=== PATIENT | female | born 1990 | race Asian ===

== ENCOUNTER 2016-10-10 20:40 | Emergency (ER) | payer MEDICAID ==
[~2016-10-10] VITALS: Ht 157.5 cm; Wt 74.8 kg
[2016-10-10 20:40] VITALS: BP 123/72; PULSE 68; RESP 18; TEMP 98.1; O2SAT 99
[~2016-10-10 20:40] MED LIST: ABILIFY; DEPAKOTE; TEMA15CA51 PO
--- NOTE | 2016-10-10 20:45 | NUR ---
Patient to ER bed 08 to gown for evaluation. Side rails up. Report given to CHARLINE Pruitt.
--- NOTE | 2016-10-10 20:48 | NUR ---
Patient came in after she just broke with her boyfriend and is upset. NO s/s of distress
--- NOTE | 2016-10-10 20:50 | NUR ---
ER at bedside examining patient.
[2016-10-10 21:20] VITALS: BP 123/72; PULSE 68; RESP 18; TEMP 98.1; O2SAT 99
--- NOTE | 2016-10-10 21:20 | NUR ---
Patient given written and verbal discharge instructions and verbalizes understanding. ER MD discussed with patient the results and treatment provided. Patient in stable condition. ID arm band removed. Patient educated on pain management and to follow up with PMD. Pain Scale 0/10. Opportunity for questions provided and answered.
[2016-10-10] MEDS ORDERED: LIDOCAINE 2%, 20 ML MDV ONE (21:53)
== END 2016-10-10 21:20 | disposition home or self-care (01) ==
LOC: SED 20:40
DX: G47.00 Insomnia, unspecified (principal); M79.662 Pain in left lower leg; F31.9 Bipolar disorder, unspecified; Z88.1 Allergy status to other antibiotic agents
CPT/HCPCS: 99281; J2001

== ENCOUNTER 2016-12-29 21:24 | Emergency (ER) | payer MEDICAID ==
[~2016-12-29] VITALS: Ht 165.1 cm; Wt 83.9 kg
[2016-12-29 21:25] VITALS: BP_SYST 123
[2016-12-29] MEDS ORDERED: IBUPROFEN 800 MG TABLET PO ONE (22:00)
[2016-12-29 22:06] LABS: BILIRUBIN,URINE NEGATIVE (NEGATIVE); BLOOD, URINE NEGATIVE (NEGATIVE); CLARITY/URINE CLOUDY (CLEAR); COLOR,URINE YELLOW (YELLOW); GLUCOSE,URINE NEGATIVE (NEGATIVE); KETONES,URINE NEGATIVE (NEGATIVE); LEUKOCYTE ESTERASE ,URINE 1+ (NEGATIVE); NITRITE, URINE NEGATIVE (NEGATIVE); PH,URINE 7.5 (5.0-8.0); PROTEIN URINE TRACE (NEGATIVE)
[2016-12-29 22:11] VITALS: BP_SYST 123
[2016-12-29 22:48] LABS: BACTERIA,URINE MODERATE /HPF (None Seen); RBC,URINE 0-3 /HPF (0-3)
[2016-12-29 22:51] LABS: MUCUS,URINE 1+ /LPF (None Seen)
[2016-12-29 22:52] LABS: URINE AMORPHOUS PHOSPHATES 4+ /HPF (None Seen)
== END 2016-12-29 22:11 | disposition home or self-care (01) ==
LOC: SED 21:24
DX: M79.622 Pain in left upper arm (principal); T43.595A Adverse effect of other antipsychotics and neuroleptics, initial encounter; F31.9 Bipolar disorder, unspecified; Y92.89 Other specified places as the place of occurrence of the external cause
CPT/HCPCS: 81000-TC; 87086; 99284

== ENCOUNTER 2017-01-17 10:00 | Emergency (ER) | payer MEDICAID ==
[~2017-01-17] VITALS: Ht 165.1 cm; Wt 82.6 kg
[2017-01-17 10:03] VITALS: BP_SYST 111
[2017-01-17] MEDS ORDERED: ONDANSETRON 4 MG ODT TAB PO ONE (10:45)
[2017-01-17 10:55] LABS: BASOPHILS # (AUTO) 0.1 K/uL (0.0-0.2); BASOPHILS % (AUTO) 0.6 % (0.0-2.0); EOSINOPHILS % (AUTO) 0.1 % (0.0-4.0); HEMATOCRIT 43.2 % (36-48); HEMOGLOBIN 14.4 g/dL (12.0-16.0); LYMPHOCYTES # (AUTO) 0.6 K/uL (1.0-5.5); LYMPHOCYTES % (AUTO) 7.2 % (20.5-51.5); MEAN CORPUSCULAR HEMOGLOBIN 30 pg (27-31); MEAN CORPUSCULAR HGB CONC 33 % (32-36); MEAN CORPUSCULAR VOLUME 91 fL (79.0-98.0); MONOCYTES # (AUTO) 0.2 K/uL (0.0-1.0); MONOCYTES % (AUTO) 2.2 % (1.7-9.3); NEUTROPHILS # (AUTO) 7.9 K/uL (1.8-7.7); NEUTROPHILS % (AUTO) 89.9 % (40.0-70.0); PLATELET COUNT (AUTO) 223 K/uL (130-430); RED BLOOD CELL COUNT(AUTO) 4.76 MIL/uL (4.2-6.2); RED CELL DISTRIBUTION WIDTH 12.1 % (9.0-15.0); WHITE BLOOD COUNT (AUTO) 8.8 K/uL (4.8-10.8)
[2017-01-17 11:02] LABS: CALCIUM 8.5 mg/dL (8.4-11.0); CREATININE 0.67 mg/dL (0.55-1.30); POTASSIUM 3.8 mmol/L (3.5-5.1)
[2017-01-17 11:06] LABS: ALBUMIN 3.8 g/dL (3.4-4.8); TOTAL BILIRUBIN 0.6 mg/dL (0.0-1.0); TOTAL PROTEIN, SERUM 7.6 g/dL (6.4-8.3)
[2017-01-17 11:36] LABS: BILIRUBIN,URINE 1+ (NEGATIVE); BLOOD, URINE 3+ (NEGATIVE); CLARITY/URINE SL HAZY (CLEAR); COLOR,URINE YELLOW (YELLOW); GLUCOSE,URINE NEGATIVE (NEGATIVE); KETONES,URINE NEGATIVE (NEGATIVE); LEUKOCYTE ESTERASE ,URINE 2+ (NEGATIVE); NITRITE, URINE NEGATIVE (NEGATIVE); PH,URINE 5.5 (5.0-8.0); PROTEIN URINE TRACE (NEGATIVE)
[2017-01-17 11:50] LABS: BACTERIA,URINE MODERATE /HPF (None Seen); RBC,URINE 20-50 /HPF (0-3)
[2017-01-17 13:06] VITALS: BP_SYST 122
== END 2017-01-17 13:06 | disposition home or self-care (01) ==
LOC: SED 10:00
DX: R10.32 Left lower quadrant pain (principal); R19.7 Diarrhea, unspecified; R11.10 Vomiting, unspecified; Z88.6 Allergy status to analgesic agent; Z98.890 Other specified postprocedural states
CPT/HCPCS: 36415; 80053; 80164; 81000; 81025; 83690; 84703; 85025; 87086; 99284; Q0162

== ENCOUNTER 2017-02-10 00:38 | Emergency (ER) | payer MEDICAID ==
[~2017-02-10] VITALS: Ht 165.1 cm; Wt 83.0 kg
[2017-02-10 01:01] VITALS: BP_SYST 101
[2017-02-10] MEDS ORDERED: ARIP15TA2 PO (01:08)
[2017-02-10] MEDS ORDERED: DIVA500T2 PO (01:08)
[2017-02-10 01:43] VITALS: BP_SYST 101
[2017-02-10 01:46] LABS: BILIRUBIN,URINE 1+ (NEGATIVE); BLOOD, URINE NEGATIVE (NEGATIVE); CLARITY/URINE SL HAZY (CLEAR); COLOR,URINE YELLOW (YELLOW); GLUCOSE,URINE NEGATIVE (NEGATIVE); KETONES,URINE NEGATIVE (NEGATIVE); LEUKOCYTE ESTERASE ,URINE TRACE (NEGATIVE); NITRITE, URINE NEGATIVE (NEGATIVE); PH,URINE 6.5 (5.0-8.0); PROTEIN URINE TRACE (NEGATIVE); UROBILINOGEN,URINE 0.2 (0.2-1.0)
[2017-02-10 01:51] LABS: BACTERIA,URINE FEW /HPF (None Seen); MUCUS,URINE 1+ /LPF (None Seen); RBC,URINE 0-3 /HPF (0-3)
[2017-02-10 01:52] LABS: BARBITURATE, URINE NEGATIVE (NEG <=200); BENZODIAZEPINE, URINE NEGATIVE (NEG <=150); CANNABINOID, URINE NEGATIVE (NEG <=50); COCAINE, URINE NEGATIVE (NEG <=150); METHAMPHETAMINES SCREEN,URINE NEGATIVE (NEG <=500); OPIATE, URINE NEGATIVE (NEG <=100); PHENCYCLIDINE SCREEN,URINE NEGATIVE (NEG <=25); UR TRICYCLIC ANTIDEPRESSANTS NEGATIVE (NEG <=300); URINE AMPHETAMINE NEGATIVE (NEG <=500); URINE OXYCODONE SCREEN NEGATIVE (NEG <=100); URINE PROPOXYPHENE SCREEN NEGATIVE (NEG <=300)
[2017-02-10 01:53] LABS: URINE METHADONE NEGATIVE (NEG <=200)
== END 2017-02-10 01:43 | disposition left against medical advice (07) ==
LOC: SED 00:38
DX: F41.9 Anxiety disorder, unspecified (principal); F31.9 Bipolar disorder, unspecified; Z53.20 Procedure and treatment not carried out because of patient's decision for unspecified reasons; Z88.1 Allergy status to other antibiotic agents
CPT/HCPCS: 80307; 81000-TC; 81025; 87086; 99284

== ENCOUNTER 2017-03-24 22:33 | Emergency (ER) | payer MEDICAID ==
[~2017-03-24] VITALS: Ht 165.1 cm; Wt 83.0 kg
[~2017-03-24 22:33] MED LIST changes: -ABILIFY; +ARIP15TA2 PO; -DEPAKOTE; +DIVA500T2 PO; -TEMA15CA51 PO
[2017-03-24 22:34] VITALS: BP_SYST 108
[2017-03-24 23:24] VITALS: BP_SYST 108
[2017-03-24] MEDS ORDERED: ONDANSETRON 4 MG ODT TAB PO ONE (23:30)
[2017-03-24] MEDS ORDERED: AZITHROMYCIN 250 MG TABLET PO ONE (23:30)
[2017-03-24] MEDS ORDERED: AZITHROMYCIN 250 MG TABLET ONE ×2 (23:43→23:57)
[2017-03-25 00:06] LABS: BILIRUBIN,URINE NEGATIVE (NEGATIVE); BLOOD, URINE NEGATIVE (NEGATIVE); CLARITY/URINE CLEAR (CLEAR); COLOR,URINE YELLOW (YELLOW); GLUCOSE,URINE NEGATIVE (NEGATIVE); KETONES,URINE 1+ (NEGATIVE); LEUKOCYTE ESTERASE ,URINE NEGATIVE (NEGATIVE); NITRITE, URINE NEGATIVE (NEGATIVE); PROTEIN URINE NEGATIVE (NEGATIVE); UROBILINOGEN,URINE 0.2 (0.2-1.0)
[2017-03-25 00:07] VITALS: BP_SYST 110
[2017-03-28 23:28] LABS: CHLAMYDIA TRACHOMATIS NAA Negative (Negative); NEISSERIA GONORRHOEAE NAA Negative (Negative)
== END 2017-03-25 00:07 | disposition home or self-care (01) ==
LOC: SED 22:33
DX: N76.0 Acute vaginitis (principal); B96.89 Other specified bacterial agents as the cause of diseases classified elsewhere; F31.9 Bipolar disorder, unspecified; Z88.1 Allergy status to other antibiotic agents
CPT/HCPCS: 81003; 81025; 87491; 87591; 99284; Q0144; Q0162

== ENCOUNTER 2017-08-05 08:56 | Emergency (ER) | payer OTHER, MEDICAID ==
[~2017-08-05] VITALS: Ht 165.1 cm; Wt 83.9 kg
[2017-08-05 09:08] VITALS: BP_SYST 125
--- NOTE | 2017-08-05 09:14 | NUR ---
Patient triaged and placed in waiting room. VSS and patient appears in no acute distress at this time. Accompanied by self, awaiting available bed, and MD notified of need for MSE.
[2017-08-05 09:48] LABS: BILIRUBIN,URINE 1+ (NEGATIVE); BLOOD, URINE NEGATIVE (NEGATIVE); CLARITY/URINE CLEAR (CLEAR); COLOR,URINE YELLOW (YELLOW); GLUCOSE,URINE NEGATIVE (NEGATIVE); KETONES,URINE 1+ (NEGATIVE); LEUKOCYTE ESTERASE ,URINE NEGATIVE (NEGATIVE); NITRITE, URINE NEGATIVE (NEGATIVE); PH,URINE 7.5 (5.0-8.0); PROTEIN URINE NEGATIVE (NEGATIVE)
--- NOTE | 2017-08-05 09:48 | NUR ---
Ambulatory to bed 4
[2017-08-05 09:53] LABS: BACTERIA,URINE RARE /HPF (None Seen); MUCUS,URINE 1+ /LPF (None Seen); RBC,URINE 0-3 /HPF (0-3); WBC,URINE 0-3 /HPF (0-3)
--- NOTE | 2017-08-05 10:38 | NUR ---
Dr. Kulkarni at bedside for evaluation
--- NOTE | 2017-08-05 11:10 | NUR ---
Pt brought by self, A&Ox4, pt c/o burning and pain with urination with mild white discharge , pt concern about STDs since she has been having unprotected sex, skin pink and warm, cap refill <3.
--- NOTE | 2017-08-05 11:20 | NUR ---
Dr Kulkarni at bedside reevaluating patient, pt refusing pelvic exam at this time, VS WNL.
[2017-08-05] MEDS ORDERED: LEVOFLOXACIN 500 MG TABLET PO ONE ×2 (11:30)
[2017-08-05] MEDS ORDERED: AZITHROMYCIN 250 MG TABLET PO ONE ×2 (11:30)
[2017-08-05 11:48] VITALS: BP_SYST 122
--- NOTE | 2017-08-05 11:48 | NUR ---
Patient given written and verbal discharge instructions and verbalizes understanding. ER MD discussed with patient the results and treatment provided. Patient in stable condition. ID arm band removed. No prescriptions given. Patient educated on pain management and to follow up with PMD. Pain Scale 0/10 Opportunity for questions provided and answered.
[2017-08-09 07:18] LABS: CHLAMYDIA TRACHOMATIS NAA Negative (Negative); NEISSERIA GONORRHOEAE NAA Negative (Negative)
== END 2017-08-05 11:48 | disposition home or self-care (01) ==
LOC: SED 08:56
DX: R10.2 Pelvic and perineal pain (principal); R30.0 Dysuria; N89.8 Other specified noninflammatory disorders of vagina; F31.9 Bipolar disorder, unspecified; Z88.1 Allergy status to other antibiotic agents
CPT/HCPCS: 81000; 81025; 87491; 87591; 99284; Q0144

== ENCOUNTER 2017-09-21 09:41 | Emergency (ER) | payer OTHER, MEDICAID ==
[~2017-09-21] VITALS: Ht 165.1 cm; Wt 83.9 kg
[2017-09-21 09:41] VITALS: BP_SYST 113
[2017-09-21 11:02] LABS: BASOPHILS # (AUTO) 0.1 K/uL (0.0-0.2); BASOPHILS % (AUTO) 0.6 % (0.0-2.0); EOSINOPHILS # (AUTO) 0.1 K/uL (0.0-0.4); EOSINOPHILS % (AUTO) 0.7 % (0.0-4.0); HEMATOCRIT 42.5 % (36-48); HEMOGLOBIN 13.8 g/dL (12.0-16.0); LYMPHOCYTES # (AUTO) 2.3 K/uL (1.0-5.5); LYMPHOCYTES % (AUTO) 27.2 % (20.5-51.5); MEAN CORPUSCULAR HEMOGLOBIN 30 pg (27-31); MEAN CORPUSCULAR HGB CONC 32 % (32-36); MEAN CORPUSCULAR VOLUME 92 fL (79.0-98.0); MONOCYTES # (AUTO) 0.4 K/uL (0.0-1.0); MONOCYTES % (AUTO) 4.7 % (1.7-9.3); NEUTROPHILS # (AUTO) 5.6 K/uL (1.8-7.7); NEUTROPHILS % (AUTO) 66.8 % (40.0-70.0); PLATELET COUNT (AUTO) 444 K/uL (130-430); RED BLOOD CELL COUNT(AUTO) 4.63 MIL/uL (4.2-6.2); RED CELL DISTRIBUTION WIDTH 11.7 % (9.0-15.0); WHITE BLOOD COUNT (AUTO) 8.5 K/uL (4.8-10.8)
[2017-09-21 11:13] LABS: BILIRUBIN,URINE NEGATIVE (NEGATIVE); BLOOD, URINE 3+ (NEGATIVE); CLARITY/URINE SL HAZY (CLEAR); COLOR,URINE YELLOW (YELLOW); GLUCOSE,URINE NEGATIVE (NEGATIVE); KETONES,URINE NEGATIVE (NEGATIVE); LEUKOCYTE ESTERASE ,URINE 1+ (NEGATIVE); NITRITE, URINE NEGATIVE (NEGATIVE); PH,URINE 7.5 (5.0-8.0); PROTEIN URINE NEGATIVE (NEGATIVE); UROBILINOGEN,URINE 0.2 (0.2-1.0)
[2017-09-21 11:46] VITALS: BP_SYST 119
[2017-09-21 11:46] LABS: BACTERIA,URINE MODERATE /HPF (None Seen); RBC,URINE 0-3 /HPF (0-3)
[2017-09-21 11:47] LABS: MUCUS,URINE 1+ /LPF (None Seen)
== END 2017-09-21 11:46 | disposition home or self-care (01) ==
LOC: SED 09:41
DX: N83.209 Unspecified ovarian cyst, unspecified side (principal); F31.9 Bipolar disorder, unspecified; Z88.1 Allergy status to other antibiotic agents
CPT/HCPCS: 36415; 76830-TC; 76857; 81000-TC; 81025; 84702-TC; 85025; 86900; 86901; 87086; 99285

== ENCOUNTER 2017-11-07 09:54 | Emergency (ER) | payer MEDICARE, MEDICAID ==
[~2017-11-07] VITALS: Ht 165.1 cm; Wt 82.6 kg
[2017-11-07 09:54] VITALS: BP_SYST 118
[2017-11-07] MEDS: ONDANSETRON 4 MG ODT TAB PO ONE (11:01)
[2017-11-07 11:19] LABS: BILIRUBIN,URINE 1+ (NEGATIVE); BLOOD, URINE NEGATIVE (NEGATIVE); CLARITY/URINE SL HAZY (CLEAR); COLOR,URINE YELLOW (YELLOW); GLUCOSE,URINE NEGATIVE (NEGATIVE); KETONES,URINE NEGATIVE (NEGATIVE); LEUKOCYTE ESTERASE ,URINE 2+ (NEGATIVE); NITRITE, URINE NEGATIVE (NEGATIVE); PROTEIN URINE TRACE (NEGATIVE); UROBILINOGEN,URINE 0.2 (0.2-1.0)
[2017-11-07 11:31] LABS: BACTERIA,URINE MODERATE /HPF (None Seen); RBC,URINE 0-3 /HPF (0-3); WBC,URINE 20-50 /HPF (0-3)
[2017-11-07 11:32] LABS: MUCUS,URINE None Seen /LPF (None Seen)
[2017-11-07 11:40] VITALS: BP_SYST 112
== END 2017-11-07 11:40 | disposition home or self-care (01) ==
LOC: SED 09:54
DX: K52.9 Noninfective gastroenteritis and colitis, unspecified (principal); N39.0 Urinary tract infection, site not specified; R03.0 Elevated blood-pressure reading, without diagnosis of hypertension; F31.9 Bipolar disorder, unspecified; Z88.1 Allergy status to other antibiotic agents
CPT/HCPCS: 81000; 81025; 87086; 99284; Q0162; 87186-TC

== ENCOUNTER 2017-11-26 22:22 | Emergency (ER) | payer MEDICARE, MEDICAID ==
[~2017-11-26] VITALS: Ht 165.1 cm; Wt 85.7 kg
[2017-11-26 22:28] VITALS: BP_SYST 117
[2017-11-27] MEDS ORDERED: LORazepam 1 MG TABLET PO ONE
[2017-11-27 00:15] VITALS: BP_SYST 121
== END 2017-11-27 00:15 | disposition home or self-care (01) ==
LOC: SED 22:22
DX: F41.9 Anxiety disorder, unspecified (principal); F31.9 Bipolar disorder, unspecified; Z88.1 Allergy status to other antibiotic agents
CPT/HCPCS: 81025; 99284

== ENCOUNTER 2017-12-18 10:09 | Emergency (ER) | payer MEDICARE, MEDICAID ==
[~2017-12-18] VITALS: Ht 165.1 cm; Wt 86.6 kg
[2017-12-18 10:14] VITALS: BP_SYST 103
[2017-12-18 10:34] LABS: BILIRUBIN,URINE NEGATIVE (NEGATIVE); BLOOD, URINE NEGATIVE (NEGATIVE); CLARITY/URINE CLEAR (CLEAR); COLOR,URINE YELLOW (YELLOW); GLUCOSE,URINE NEGATIVE (NEGATIVE); KETONES,URINE NEGATIVE (NEGATIVE); LEUKOCYTE ESTERASE ,URINE NEGATIVE (NEGATIVE); NITRITE, URINE NEGATIVE (NEGATIVE); PH,URINE 8.5 (5.0-8.0); PROTEIN URINE NEGATIVE (NEGATIVE); UROBILINOGEN,URINE 0.2 (0.2-1.0)
[2017-12-18 11:47] VITALS: BP_SYST 103
== END 2017-12-18 11:46 | disposition home or self-care (01) ==
LOC: SED 10:09
DX: B37.9 Candidiasis, unspecified (principal); R56.9 Unspecified convulsions; Z88.1 Allergy status to other antibiotic agents
CPT/HCPCS: 81003; 81025; 99283

== ENCOUNTER 2019-05-30 22:33 | Emergency (ER) | payer MEDICARE, MEDICAID ==
[~2019-05-30] VITALS: Ht 165.1 cm; Wt 95.7 kg
[2019-05-30 22:38] VITALS: BP_SYST 127
--- NOTE | 2019-05-30 22:38 | NUR ---
Patient triaged and placed in waiting room. VSS and patient appears in no acute distress at this time. Accompanied by SELF, awaiting available bed, and MD notified of need for MSE.
--- NOTE | 2019-05-30 23:08 | NUR ---
Patient to ER bed [facility] for evaluation. Side rails up. Report given to PRUDENCIO OLIVIER.
--- NOTE | 2019-05-30 23:15 | NUR ---
Patient AOx4, ambulatory, presents to ER with complaint of possible bug bites to bilateral lower legs noted today. Patient states no other symptoms or complaints.
--- NOTE | 2019-05-30 23:24 | NUR ---
ER at bedside examining patient.
[2019-05-30] MEDS ORDERED: ACETAMINOPHEN 325 MG TABLET PO ONE (23:30)
--- NOTE | 2019-05-31 00:07 | NUR ---
No adverse reactions noted after medication administration. Will continue to monitor.
[2019-05-31 00:08] VITALS: BP_SYST 127
--- NOTE | 2019-05-31 00:08 | NUR ---
Patient given written and verbal discharge instructions and verbalizes understanding. ER MD discussed with patient the results and treatment provided. Patient in stable condition. ID arm band removed. Rx of Bactrim given. Patient educated on pain management and to follow up with PMD. Pain Scale 0/10. Opportunity for questions provided and answered. Medication side effect fact sheet provided.
== END 2019-05-31 00:08 | disposition home or self-care (01) ==
LOC: SED 22:33
DX: S80.862A Insect bite (nonvenomous), left lower leg, initial encounter (principal); S80.861A Insect bite (nonvenomous), right lower leg, initial encounter; R03.0 Elevated blood-pressure reading, without diagnosis of hypertension; F31.9 Bipolar disorder, unspecified; Z88.1 Allergy status to other antibiotic agents; W57.XXXA Bitten or stung by nonvenomous insect and other nonvenomous arthropods, initial encounter; Y93.89 Activity, other specified; Y92.89 Other specified places as the place of occurrence of the external cause; Y99.8 Other external cause status
CPT/HCPCS: 81025; 99283

== ENCOUNTER 2020-02-02 22:31 | Emergency (ER) | payer MEDICARE, MEDICAID ==
[~2020-02-02] VITALS: Ht 172.7 cm; Wt 97.5 kg
[2020-02-02 22:45] VITALS: BP_SYST 126
--- NOTE | 2020-02-02 22:50 | NUR ---
Patient to ER bed 7 to gown for evaluation. Side rails up. Report given to KERWIN OLIVIER.
--- NOTE | 2020-02-02 22:55 | NUR ---
ER Dr. Noriega at bedside examining patient.
[2020-02-02 23:07] LABS: BILIRUBIN,URINE 1+ (NEGATIVE); BLOOD, URINE 3+ (NEGATIVE); CLARITY/URINE SL CLOUDY (CLEAR); COLOR,URINE YELLOW (YELLOW); GLUCOSE,URINE NEGATIVE (NEGATIVE); KETONES,URINE TRACE (NEGATIVE); LEUKOCYTE ESTERASE ,URINE TRACE (NEGATIVE); NITRITE, URINE NEGATIVE (NEGATIVE); PH,URINE 6.5 (5.0-8.0); PROTEIN URINE 1+ (NEGATIVE)
--- NOTE | 2020-02-02 23:10 | NUR ---
pt in [place], A/O and able to make needs known. No distress noted.
[2020-02-02 23:16] LABS: BACTERIA,URINE FEW /HPF (None Seen); RBC,URINE >100 /HPF (0-3); WBC,URINE 0-3 /HPF (0-3)
--- NOTE | 2020-02-02 23:51 | NUR ---
Patient given written and verbal discharge instructions and verbalizes understanding. ER MD Noriega discussed with patient the results and treatment provided. Patient in stable condition. ID arm band removed. Patient educated on pain management and to follow up with PMD. Pain Scale 2/10. Opportunity for questions provided and answered. Medication side effect fact sheet provided.
[2020-02-02 23:52] VITALS: BP_SYST 126
== END 2020-02-02 23:51 | disposition home or self-care (01) ==
LOC: SED 22:31
DX: R10.10 Upper abdominal pain, unspecified (principal); Z88.1 Allergy status to other antibiotic agents
CPT/HCPCS: 81000-TC; 99283

== ENCOUNTER 2020-12-18 21:36 | Emergency (ER) | payer MEDICARE, MEDICAID ==
[~2020-12-18] VITALS: Ht 165.1 cm; Wt 93.4 kg
[2020-12-18 22:00] VITALS: BP_SYST 118
[2020-12-18] MEDS ORDERED: ONDANSETRON HCL 4 MG/2 ML VIAL IVP ONE (22:45)
[2020-12-18] MEDS ORDERED: NACL 0.9% 1,000 ML IV ONE (22:45)
[2020-12-18] MEDS ORDERED: KETOROLAC TROMETHAMINE 30 MG VIAL IVP ONE (22:45)
[2020-12-18 22:57] LABS: BILIRUBIN,URINE NEGATIVE (NEGATIVE); BLOOD, URINE 3+ (NEGATIVE); CLARITY/URINE SL CLOUDY (CLEAR); COLOR,URINE YELLOW (YELLOW); GLUCOSE,URINE NEGATIVE (NEGATIVE); KETONES,URINE TRACE (NEGATIVE); LEUKOCYTE ESTERASE ,URINE NEGATIVE (NEGATIVE); NITRITE, URINE NEGATIVE (NEGATIVE); PROTEIN URINE 1+ (NEGATIVE)
[2020-12-18 23:10] LABS: BASOPHILS # (AUTO) 0.1 K/uL (0.0-0.2); BASOPHILS % (AUTO) 0.7 % (0.0-2.0); EOSINOPHILS # (AUTO) 0.1 K/uL (0.0-0.4); EOSINOPHILS % (AUTO) 1.5 % (0.0-4.0); HEMATOCRIT 39.9 % (36-48); HEMOGLOBIN 13.5 g/dL (12.0-16.0); LYMPHOCYTES # (AUTO) 3.1 K/uL (1.0-5.5); LYMPHOCYTES % (AUTO) 33.3 % (20.5-51.5); MEAN CORPUSCULAR HEMOGLOBIN 31 pg (27-31); MEAN CORPUSCULAR HGB CONC 34 % (32-36); MEAN CORPUSCULAR VOLUME 91 fL (79.0-98.0); MONOCYTES # (AUTO) 0.8 K/uL (0.0-1.0); MONOCYTES % (AUTO) 8.4 % (1.7-9.3); NEUTROPHILS # (AUTO) 5.3 K/uL (1.8-7.7); NEUTROPHILS % (AUTO) 56.1 % (40.0-70.0); PLATELET COUNT (AUTO) 279 K/uL (130-430); RED BLOOD CELL COUNT(AUTO) 4.37 MIL/uL (4.2-6.2); RED CELL DISTRIBUTION WIDTH 12.9 % (9.0-15.0); WHITE BLOOD COUNT (AUTO) 9.4 K/uL (4.8-10.8)
[2020-12-18 23:22] LABS: CALCIUM 8.6 mg/dL (8.4-11.0); CREATININE 0.66 mg/dL (0.55-1.30); POTASSIUM 3.5 mmol/L (3.5-5.1)
[2020-12-18 23:27] LABS: ALBUMIN 3.5 g/dL (3.4-4.8); TOTAL BILIRUBIN 0.2 mg/dL (0.0-1.0)
[2020-12-18 23:57] LABS: BACTERIA,URINE FEW /HPF (None Seen); RBC,URINE 20-50 /HPF (0-3); WBC,URINE 0-3 /HPF (0-3)
[2020-12-19] MEDS ORDERED: ALBU8.5H8 INH (00:09)
[2020-12-19] MEDS ORDERED: PRED20TA PO (00:09)
[2020-12-19] MEDS ORDERED: ALBUTEROL SULFATE 0.083% 2.5 MG/3 ML VIAL.NEB INH ONE ×2 (00:14→00:15)
[2020-12-19 01:11] VITALS: BP_SYST 118
== END 2020-12-19 01:11 | disposition home or self-care (01) ==
LOC: SED 21:36
DX: N83.209 Unspecified ovarian cyst, unspecified side (principal); Z88.1 Allergy status to other antibiotic agents; Z79.899 Other long term (current) drug therapy
CPT/HCPCS: 36415; 76830; 76857; 80053; 81000; 81025; 85025; 94640; 96361 ×2; 96374; 96375; 99284; J1885; J2405; J7030; J7613

== ENCOUNTER 2021-03-31 07:42 | Emergency (ER) | payer MEDICARE, MEDICAID ==
[~2021-03-31] VITALS: Ht 165.1 cm; Wt 93.0 kg
[2021-03-31 08:10] VITALS: BP_SYST 147
[2021-03-31] MEDS ORDERED: FLUC200T PO ×2 (09:27→09:54)
[2021-03-31] MEDS: AZITHROMYCIN 250 MG TABLET PO ONE (09:58)
[2021-03-31] MEDS: GENTAMICIN SULFATE 80 MG/ 2ML VIAL IM ONE (09:59)
[2021-03-31 10:21] VITALS: BP_SYST 102
[2021-04-02 01:06] LABS: CHLAMYDIA TRACHOMATIS NAA Negative (Negative); NEISSERIA GONORRHOEAE NAA Negative (Negative)
== END 2021-03-31 10:23 | disposition home or self-care (01) ==
LOC: SED 07:42
DX: N76.0 Acute vaginitis (principal); F31.9 Bipolar disorder, unspecified; Z88.1 Allergy status to other antibiotic agents; Z79.899 Other long term (current) drug therapy
CPT/HCPCS: 81002; 81025; 87491; 87591; 96372; 99284; J1580; Q0144

== ENCOUNTER 2021-04-01 13:55 | Emergency (ER) | payer MEDICARE, MEDICAID ==
[~2021-04-01] VITALS: Ht 165.1 cm; Wt 91.2 kg
[~2021-04-01 13:55] MED LIST changes: +FLUC200T PO
[2021-04-01 13:57] VITALS: BP_SYST 114
[2021-04-01] MEDS ORDERED: METOCLOPRAMIDE HCL 10 MG TABLET PO ONE (15:45)
[2021-04-01 16:00] LABS: BILIRUBIN,URINE NEGATIVE (NEGATIVE); BLOOD, URINE 1+ (NEGATIVE); CLARITY/URINE CLOUDY (CLEAR); COLOR,URINE YELLOW (YELLOW); GLUCOSE,URINE NEGATIVE (NEGATIVE); KETONES,URINE NEGATIVE (NEGATIVE); LEUKOCYTE ESTERASE ,URINE 2+ (NEGATIVE); NITRITE, URINE NEGATIVE (NEGATIVE); PROTEIN URINE TRACE (NEGATIVE); UROBILINOGEN,URINE 0.2 (0.2-1.0)
[2021-04-01 16:32] LABS: BACTERIA,URINE MODERATE /HPF (None Seen); MUCUS,URINE 2+ /LPF (None Seen); WBC,URINE 20-50 /HPF (0-3); YEAST,URINE Few /HPF (None Seen)
[2021-04-01 17:34] VITALS: BP_SYST 114
== END 2021-04-01 17:35 | disposition home or self-care (01) ==
LOC: SED 13:55
DX: N39.0 Urinary tract infection, site not specified (principal); Z88.1 Allergy status to other antibiotic agents; Z79.899 Other long term (current) drug therapy
CPT/HCPCS: 81000; 81025; 87086; 99283; J8597